=== PATIENT | female | born 1975 | race Caucasian/White ===

== ENCOUNTER 2021-04-06 11:30 | Emergency (ER) | payer OTHER ==
[~2021-04-06] VITALS: Ht 157.5 cm; Wt 81.7 kg
[2021-04-06] MEDS ORDERED: HYDROCODON-ACE1 EAC7 PO (16:39)
[2021-04-06 16:58] VITALS: BP 145/82
== END 2021-04-06 16:59 | disposition home or self-care (01) ==
LOC: M.ERS 11:30
DX: C79.51 Secondary malignant neoplasm of bone (principal); W18.09XA Striking against other object with subsequent fall, initial encounter; Y93.89 Activity, other specified; Y92.89 Other specified places as the place of occurrence of the external cause; Y99.8 Other external cause status; Z98.890 Other specified postprocedural states; Z90.49 Acquired absence of other specified parts of digestive tract